=== PATIENT | female | born 1995 | race Caucasian/White ===

== ENCOUNTER 2017-11-11 09:49 | Outpatient (CLI) | payer OTHER ==
--- NOTE | 2017-11-11 11:04 | RAD ---
TWO VIEW CHEST: Comparison: 09-30-16 Indication: Pharyngitis. FINDINGS: Lungs are clear. Elevation of right hemidiaphragm is similar appearing. Cardiac silhouette is within normal limits in size. No significant interval change. IMPRESSION: No focal consolidation. POS: [facility]
== END 2017-11-11 09:50 | disposition home or self-care (01) ==
LOC: RAD 09:49
PROVIDERS: ATTEND Family Medicine
DX: J02.9 Acute pharyngitis, unspecified (principal)
CPT/HCPCS: 71046; 87070

== ENCOUNTER 2021-09-06 14:41 | Outpatient (CLI) | payer OTHER | END 2021-09-06 14:42 | disposition home or self-care (01) | LOC: SCSRAD 14:41 | PROVIDERS: ATTEND Family Medicine | DX: R04.2 Hemoptysis (principal) | CPT/HCPCS: 71046 ==

== ENCOUNTER 2023-01-15 10:23 | Outpatient (CLI) | payer BC | END 2023-01-15 10:24 | disposition home or self-care (01) | LOC: RAD 10:23 | PROVIDERS: ATTEND Family Medicine | DX: J22 Unspecified acute lower respiratory infection (principal); R91.8 Other nonspecific abnormal finding of lung field | CPT/HCPCS: 71046 ==

== ENCOUNTER 2023-06-05 14:03 | Outpatient (CLI) | payer BC | END 2023-06-05 14:04 | disposition home or self-care (01) | LOC: SCSRAD 14:03 | PROVIDERS: ATTEND Nurse Practitioner Family | DX: R05.1 Acute cough (principal) | CPT/HCPCS: 71046 ==